=== PATIENT | male | born 1965 | race African-American/Black ===

== ENCOUNTER 2021-10-03 10:58 | Inpatient (IN) | payer OTHER ==
[2021-10-03] MEDS ORDERED: MAG HYDROX/AL HYDROX/SIMETH 30 ML UNIT-DOSE CUP PO PRN (11:26)
[2021-10-03] MEDS ORDERED: IBUPROFEN 400 MG TABLET (FP) PO PRN (11:26)
[2021-10-03] MEDS ORDERED: LOPERAMIDE HCL 2 MG CAPSULE PO PRN (11:26)
[2021-10-03] MEDS ORDERED: ONDANSETRON *ODT* 4 MG TABLET SL PRN (11:26)
[2021-10-03] MEDS ORDERED: MAGNESIUM HYDROX 2400MG/30ML ORAL SUSPENSION 30 ML CUP PO PRN (11:26)
[2021-10-03] MEDS ORDERED: MAGNESIUM CITRATE 300 ML BOTTLE PO PRN (11:26)
[2021-10-03] MEDS ORDERED: BENZOCAINE/MENTHOL (CHLORASEPTIC ) LOZENGE MM PRN (11:26)
[2021-10-03] MEDS ORDERED: ACETAMINOPHEN 325 MG TABLET (FP) PO PRN ×2 (11:26)
[2021-10-03] MEDS ORDERED: chlordiazePOXIDE HCL 25 MG CAPSULE PO PRN (11:26)
[2021-10-03] MEDS ORDERED: DICYCLOMINE HCL 10 MG CAPSULE PO PRN (11:26)
[2021-10-03] MEDS ORDERED: BISMUTH SUBSALICYLATE 262 MG/15 ML BTL PO PRN (11:26)
[2021-10-03] MEDS ORDERED: NICOTINE 10 MG CARTRIDGE (INHALER) IH PRN (11:26)
[2021-10-03 12:11] VITALS: BMI 25.2
[2021-10-03] MEDS: hydrOXYzine PAMOATE 25 MG CAPSULE (FP) PO SCH ×3 (14:33→23:18)
[2021-10-03] MEDS: METHOCARBAMOL 500 MG TABLET PO PRN (14:33)
[2021-10-03] MEDS: NICOTINE 21 MG/24 HOURS TOPICAL PATCH TD SCH (14:34)
[2021-10-03] MEDS: PRENATAL VITAMINS W/ FOLIC ACID TABLET (FP) PO SCH (14:34)
[2021-10-03 14:59] LABS: HEMATOCRIT 40.2 % (35.4-49); HEMOGLOBIN 13.1 GM/dL (11.7-16.9); MCH 32.1 pg (25.7-33.7); MCHC 32.5 g/dl (32.0-35.9); MEAN CELL VOLUME 98.9 fl (80-96); MEAN PLT VOLUME 8.5 fl (7.5-11.1); PLATELET COUNT 306 10^3/uL (134-434); RBC 4.07 M/mm3 (4.00-5.60); RDW 13.3 % (11.9-15.9); WHITE BLOOD COUNT 4.4 K/mm3 (4.0-10.0)
[2021-10-03 15:24] LABS: ALBUMIN 3.9 g/dl (3.4-5.0)
[2021-10-03 15:25] LABS: CALCIUM 9.1 mg/dL (8.5-10.1)
[2021-10-03 15:26] LABS: BLOOD UREA NITROGEN 20.2 mg/dL (7-18)
[2021-10-03 15:27] LABS: CREATININE 1.2 mg/dL (0.55-1.3)
[2021-10-03 15:29] LABS: BILIRUBIN,TOTAL 0.8 mg/dL (0.2-1); TOT PROT 6.9 g/dl (6.4-8.2)
[2021-10-03] MEDS: chlordiazePOXIDE HCL 25 MG CAPSULE PO SCH ×2 (20:06→23:18)
[2021-10-03] MEDS: THIAMINE HCL 100 MG TABLET (FP) PO SCH (23:18)
[2021-10-03] MEDS: MELATONIN 5 MG TABLETS PO SCH (23:18)
[2021-10-04] MEDS: hydrOXYzine PAMOATE 25 MG CAPSULE (FP) PO SCH ×5 (05:26→23:30)
[2021-10-04] MEDS: chlordiazePOXIDE HCL 25 MG CAPSULE PO SCH ×2 (05:27→05:38)
[2021-10-04] MEDS ORDERED: LORazepam 1 MG TABLET PO PRN (10:06)
[2021-10-04] MEDS: LORazepam 2 MG TABLET PO SCH ×3 (11:18→23:31)
[2021-10-04] MEDS: NICOTINE 21 MG/24 HOURS TOPICAL PATCH TD SCH (11:18)
[2021-10-04] MEDS: PRENATAL VITAMINS W/ FOLIC ACID TABLET (FP) PO SCH (11:18)
[2021-10-04] MEDS: FLUOCINONIDE 0.05% TOP OINT (15 GM TUBE) TP PRN (11:28)
[2021-10-04] MEDS: MELATONIN 5 MG TABLETS PO SCH (23:30)
[2021-10-04] MEDS: THIAMINE HCL 100 MG TABLET (FP) PO SCH (23:31)
[2021-10-05] MEDS ORDERED: chlordiazePOXIDE HCL 25 MG CAPSULE PO SCH (05:00)
[2021-10-05] MEDS: LORazepam 2 MG TABLET PO SCH ×3 (06:10→18:17)
[2021-10-05] MEDS: hydrOXYzine PAMOATE 25 MG CAPSULE (FP) PO SCH ×5 (06:11→23:28)
[2021-10-05] MEDS: PRENATAL VITAMINS W/ FOLIC ACID TABLET (FP) PO SCH (11:13)
[2021-10-05] MEDS: NICOTINE 21 MG/24 HOURS TOPICAL PATCH TD SCH (11:13)
[2021-10-05] MEDS: MELATONIN 5 MG TABLETS PO SCH (23:27)
[2021-10-05] MEDS: THIAMINE HCL 100 MG TABLET (FP) PO SCH (23:28)
[2021-10-06] MEDS ORDERED: chlordiazePOXIDE HCL 10 MG CAPSULE PO PRN
[2021-10-06] MEDS: LORazepam 2 MG TABLET PO SCH (00:46)
[2021-10-06] MEDS ORDERED: chlordiazePOXIDE HCL 10 MG CAPSULE PO SCH (05:00)
[2021-10-06] MEDS: LORazepam 1 MG TABLET PO SCH ×4 (05:22→22:59)
[2021-10-06] MEDS: hydrOXYzine PAMOATE 25 MG CAPSULE (FP) PO SCH ×5 (05:22→22:59)
[2021-10-06] MEDS: PRENATAL VITAMINS W/ FOLIC ACID TABLET (FP) PO SCH (10:42)
[2021-10-06] MEDS: NICOTINE 21 MG/24 HOURS TOPICAL PATCH TD SCH (10:42)
[2021-10-06] MEDS: METHOCARBAMOL 500 MG TABLET PO PRN (10:42)
[2021-10-06] MEDS: MELATONIN 5 MG TABLETS PO SCH (22:59)
[2021-10-06] MEDS: THIAMINE HCL 100 MG TABLET (FP) PO SCH (22:59)
[2021-10-07] MEDS ORDERED: LORazepam 0.5 MG TABLET PO PRN
[2021-10-07] MEDS ORDERED: chlordiazePOXIDE HCL 10 MG CAPSULE PO SCH (05:00)
[2021-10-07] MEDS: hydrOXYzine PAMOATE 25 MG CAPSULE (FP) PO SCH ×5 (05:55→22:40)
[2021-10-07] MEDS: LORazepam 0.5 MG TABLET PO SCH ×4 (05:55→22:49)
[2021-10-07] MEDS: NICOTINE 21 MG/24 HOURS TOPICAL PATCH TD SCH (09:57)
[2021-10-07] MEDS: PRENATAL VITAMINS W/ FOLIC ACID TABLET (FP) PO SCH (09:57)
[2021-10-07] MEDS: METHOCARBAMOL 500 MG TABLET PO PRN (09:58)
[2021-10-07] MEDS: FLUOCINONIDE 0.05% TOP OINT (15 GM TUBE) TP PRN (18:14)
[2021-10-07] MEDS: THIAMINE HCL 100 MG TABLET (FP) PO SCH (22:40)
[2021-10-07] MEDS: MELATONIN 5 MG TABLETS PO SCH (22:40)
[2021-10-08] MEDS ORDERED: chlordiazePOXIDE HCL 10 MG CAPSULE PO ONE (05:00)
[2021-10-08] MEDS ORDERED: LORazepam 0.5 MG TABLET PO ONE (05:00)
[2021-10-08] MEDS: hydrOXYzine PAMOATE 25 MG CAPSULE (FP) PO SCH ×2 (05:54→10:11)
[2021-10-08 09:31] VITALS: BP 129/63; PULSE 85; TEMP 96.9
[2021-10-08] MEDS: PRENATAL VITAMINS W/ FOLIC ACID TABLET (FP) PO SCH (10:11)
[2021-10-08] MEDS: NICOTINE 21 MG/24 HOURS TOPICAL PATCH TD SCH (10:11)
== END 2021-10-08 09:31 | disposition other institution (70) | DRG 774 ==
LOC: YASAS 10:58 → Y6N 14:11
PROVIDERS: ADMIT Allergy & Immunology; ATTEND Surgery
PROC: HZ2ZZZZ Detoxification Services for Substance Abuse Treatment (ICD-10-PCS; principal; 2021-10-03)
DX: F10.230 Alcohol dependence with withdrawal, uncomplicated (principal); F14.20 Cocaine dependence, uncomplicated; F17.213 Nicotine dependence, cigarettes, with withdrawal; L30.9 Dermatitis, unspecified; Z86.19 Personal history of other infectious and parasitic diseases; Z59.01 Sheltered homelessness; Z91.012 Allergy to eggs; Z91.018 Allergy to other foods
CPT/HCPCS: 36415; 80053; 85027; 86593; 86780; 93005; 93010; C9803-CS; U0003; U0005

== ENCOUNTER 2022-06-28 11:06 | Inpatient (IN) | payer OTHER ==
[2022-06-28 11:34] VITALS: BMI 26.2
[2022-06-28] MEDS ORDERED: ACETAMINOPHEN 325 MG TABLET (FP) PO PRN ×2 (12:41)
[2022-06-28] MEDS ORDERED: BENZOCAINE/MENTHOL (CHLORASEPTIC ) LOZENGE MM PRN (12:41)
[2022-06-28] MEDS ORDERED: IBUPROFEN 400 MG TABLET (FP) PO PRN (12:41)
[2022-06-28] MEDS ORDERED: NICOTINE 10 MG CARTRIDGE (INHALER) IH PRN (12:41)
[2022-06-28] MEDS ORDERED: hydrOXYzine PAMOATE 25 MG CAPSULE (FP) PO PRN (12:41)
[2022-06-28] MEDS ORDERED: METHOCARBAMOL 500 MG TABLET PO PRN (12:41)
[2022-06-28] MEDS ORDERED: NICOTINE POLACRILEX 4 MG GUM BUC PRN (12:41)
[2022-06-28] MEDS ORDERED: MAGNESIUM HYDROX 2400MG/30ML ORAL SUSPENSION 30 ML CUP PO PRN (12:41)
[2022-06-28] MEDS ORDERED: chlordiazePOXIDE HCL 25 MG CAPSULE PO PRN (12:41)
[2022-06-28] MEDS ORDERED: LOPERAMIDE HCL 2 MG CAPSULE PO PRN (12:41)
[2022-06-28] MEDS ORDERED: NALOXONE HCL (KLOXXADO) 8 MG SPRAY NS PRN (12:41)
[2022-06-28] MEDS ORDERED: DICYCLOMINE HCL 10 MG CAPSULE PO PRN (12:41)
[2022-06-28] MEDS ORDERED: POLYETHYLENE GLYCOL (HEALTHYLAX) 3350 17 GM PACKET PO PRN (12:41)
[2022-06-28] MEDS ORDERED: MAG HYDROX/AL HYDROX/SIMETH 30 ML UNIT-DOSE CUP PO PRN (12:41)
[2022-06-28] MEDS ORDERED: ONDANSETRON *ODT* 4 MG TABLET SL PRN (12:41)
[2022-06-28] MEDS ORDERED: IBUPROFEN 600 MG TABLET (FP) PO PRN (12:41)
[2022-06-28] MEDS ORDERED: BISMUTH SUBSALICYLATE 262 MG/15 ML BTL PO PRN (12:41)
[2022-06-28] MEDS ORDERED: PRENATAL VITAMINS W/ FOLIC ACID TABLET (FP) PO ONE (13:36)
[2022-06-28] MEDS: PRENATAL VITAMINS W/ FOLIC ACID TABLET (FP) PO SCH (13:38)
[2022-06-28] MEDS: chlordiazePOXIDE HCL 25 MG CAPSULE PO SCH ×2 (17:29→22:46)
[2022-06-28 17:32] LABS: HEMATOCRIT 38.5 % (35.4-49); MCH 33.5 pg (25.7-33.7); MCHC 33.8 g/dl (32.0-35.9); MEAN CELL VOLUME 99.2 fl (80-96); MEAN PLT VOLUME 8.5 fl (7.5-11.1); PLATELET COUNT 273 10^3/uL (134-434); RBC 3.88 M/mm3 (4.00-5.60); RDW 13.3 % (11.9-15.9)
[2022-06-28 17:37] LABS: CALCIUM 9.3 mg/dL (8.5-10.1)
[2022-06-28 17:38] LABS: ALBUMIN 3.9 g/dl (3.4-5.0)
[2022-06-28 17:42] LABS: CREATININE 1.2 mg/dL (0.55-1.3)
[2022-06-28 17:44] LABS: TOT PROT 6.9 g/dl (6.4-8.2)
[2022-06-28] MEDS: THIAMINE HCL 100 MG TABLET (FP) PO SCH (22:46)
[2022-06-28] MEDS: MELATONIN 5 MG TABLETS PO SCH (22:46)
[2022-06-29] MEDS: chlordiazePOXIDE HCL 25 MG CAPSULE PO SCH ×5 (06:00→22:39)
[2022-06-29] MEDS: PRENATAL VITAMINS W/ FOLIC ACID TABLET (FP) PO SCH (10:20)
[2022-06-29 21:32] VITALS: RESP 16
[2022-06-29] MEDS: MELATONIN 5 MG TABLETS PO SCH (22:38)
[2022-06-29] MEDS: THIAMINE HCL 100 MG TABLET (FP) PO SCH (23:52)
[2022-06-30] MEDS ORDERED: chlordiazePOXIDE HCL 25 MG CAPSULE PO SCH (05:00)
[2022-06-30 07:05] VITALS: BP 118/71; PULSE 67; TEMP 96.8
[2022-07-01] MEDS ORDERED: chlordiazePOXIDE HCL 10 MG CAPSULE PO PRN
[2022-07-01] MEDS ORDERED: chlordiazePOXIDE HCL 10 MG CAPSULE PO SCH (05:00)
[2022-07-02] MEDS ORDERED: chlordiazePOXIDE HCL 10 MG CAPSULE PO SCH (05:00)
[2022-07-03] MEDS ORDERED: chlordiazePOXIDE HCL 10 MG CAPSULE PO ONE (05:00)
== END 2022-06-30 09:10 | disposition home or self-care (01) | DRG 774 ==
LOC: YASAS 11:06 → Y3N 14:05
PROVIDERS: ADMIT Allergy & Immunology; ATTEND Family Medicine
PROC: HZ2ZZZZ Detoxification Services for Substance Abuse Treatment (ICD-10-PCS; principal; 2022-06-28)
DX: F10.230 Alcohol dependence with withdrawal, uncomplicated (principal); F14.20 Cocaine dependence, uncomplicated; F17.210 Nicotine dependence, cigarettes, uncomplicated; J45.909 Unspecified asthma, uncomplicated; L30.9 Dermatitis, unspecified; Z86.19 Personal history of other infectious and parasitic diseases; Z91.012 Allergy to eggs; Z91.018 Allergy to other foods
CPT/HCPCS: 36415; 80053; 85027; 86593; 86780; C9803-CS; U0003; U0005

== ENCOUNTER 2022-08-24 11:23 | Inpatient (IN) | payer OTHER ==
[2022-08-24 13:15] VITALS: BMI 25.6
[2022-08-24] MEDS ORDERED: guaiFENesin 600 MG TABLET.ER (FP) PO PRN (13:30)
[2022-08-24] MEDS ORDERED: NALOXONE HCL (KLOXXADO) 8 MG SPRAY NS PRN (13:30)
[2022-08-24] MEDS ORDERED: ONDANSETRON *ODT* 4 MG TABLET SL PRN (13:30)
[2022-08-24] MEDS ORDERED: METHOCARBAMOL 500 MG TABLET PO PRN (13:30)
[2022-08-24] MEDS ORDERED: COLLOIDAL OATMEAL 1 BAR EACH TP PRN (13:30)
[2022-08-24] MEDS ORDERED: BENZONATATE 200 MG CAPSULE PO PRN (13:30)
[2022-08-24] MEDS ORDERED: ACETAMINOPHEN 325 MG TABLET (FP) PO PRN (13:30)
[2022-08-24] MEDS ORDERED: BENZOCAINE/MENTHOL (CHLORASEPTIC ) LOZENGE MM PRN (13:30)
[2022-08-24] MEDS ORDERED: MAGNESIUM HYDROX 2400MG/30ML ORAL SUSPENSION 30 ML CUP PO PRN (13:30)
[2022-08-24] MEDS ORDERED: BISMUTH SUBSALICYLATE 524 MG/30 ML PO PRN (13:30)
[2022-08-24] MEDS ORDERED: NALOXONE HCL 0.4 MG/ML VIAL IM PRN (13:30)
[2022-08-24] MEDS ORDERED: LORazepam 1 MG TABLET PO PRN (13:30)
[2022-08-24] MEDS ORDERED: POLYETHYLENE GLYCOL (HEALTHYLAX) 3350 17 GM PACKET PO PRN (13:30)
[2022-08-24] MEDS ORDERED: DICYCLOMINE HCL 10 MG CAPSULE PO PRN (13:30)
[2022-08-24] MEDS ORDERED: NICOTINE 10 MG CARTRIDGE (INHALER) IH PRN (13:30)
[2022-08-24] MEDS ORDERED: NICOTINE POLACRILEX 4 MG GUM BUC PRN (13:30)
[2022-08-24] MEDS ORDERED: LOPERAMIDE HCL 2 MG CAPSULE PO PRN (13:30)
[2022-08-24] MEDS ORDERED: IBUPROFEN 400 MG TABLET (FP) PO PRN (13:30)
[2022-08-24] MEDS ORDERED: ALBUTEROL SO4 HFA INHALER IH PRN (13:34)
[2022-08-24] MEDS: FLUOCINONIDE 0.05% TOP OINT (60 GM TUBE) TP SCH ×2 (14:41→22:40)
[2022-08-24] MEDS: LORazepam 2 MG TABLET PO SCH ×2 (18:41→22:39)
[2022-08-24] MEDS: THIAMINE HCL 100 MG TABLET (FP) PO SCH (22:39)
[2022-08-24] MEDS: MELATONIN 5 MG TABLETS PO SCH (22:40)
[2022-08-25] MEDS: LORazepam 2 MG TABLET PO SCH ×2 (05:50→11:05)
[2022-08-25] MEDS: FLUOCINONIDE 0.05% TOP OINT (60 GM TUBE) TP SCH ×3 (06:07→22:40)
[2022-08-25] MEDS: PRENATAL VITAMINS W/ FOLIC ACID TABLET (FP) PO SCH (11:05)
[2022-08-25 11:48] LABS: HEMATOCRIT 37.1 % (35.4-49); HEMOGLOBIN 12.6 GM/dL (11.7-16.9); MCH 32.6 pg (25.7-33.7); MCHC 33.9 g/dl (32.0-35.9); MEAN CELL VOLUME 96.2 fl (80-96); MEAN PLT VOLUME 8.4 fl (7.5-11.1); PLATELET COUNT 265 10^3/uL (134-434); RBC 3.86 M/mm3 (4.00-5.60); WHITE BLOOD COUNT 8.7 K/mm3 (4.0-10.0)
[2022-08-25 11:51] LABS: ALBUMIN 3.3 g/dl (3.4-5.0); BLOOD UREA NITROGEN 16.9 mg/dL (7-18)
[2022-08-25 11:52] LABS: CALCIUM 8.6 mg/dL (8.5-10.1)
[2022-08-25 11:55] LABS: CREATININE 0.8 mg/dL (0.55-1.3)
[2022-08-25 11:56] LABS: BILIRUBIN,TOTAL 0.7 mg/dL (0.2-1)
[2022-08-25] MEDS: LORazepam 1 MG TABLET PO SCH ×2 (17:41→22:40)
[2022-08-25] MEDS: MELATONIN 5 MG TABLETS PO SCH (22:40)
[2022-08-25] MEDS: THIAMINE HCL 100 MG TABLET (FP) PO SCH (22:40)
[2022-08-26] MEDS: LORazepam 1 MG TABLET PO SCH ×4 (05:23→22:41)
[2022-08-26] MEDS: FLUOCINONIDE 0.05% TOP OINT (60 GM TUBE) TP SCH ×3 (05:24→22:43)
[2022-08-26] MEDS: PRENATAL VITAMINS W/ FOLIC ACID TABLET (FP) PO SCH (10:52)
[2022-08-26] MEDS: MAG HYDROX/AL HYDROX/SIMETH 30 ML UNIT-DOSE CUP PO PRN (21:23)
[2022-08-26] MEDS: THIAMINE HCL 100 MG TABLET (FP) PO SCH (22:41)
[2022-08-26] MEDS: MELATONIN 5 MG TABLETS PO SCH (22:43)
[2022-08-27] MEDS ORDERED: LORazepam 0.5 MG TABLET PO PRN
[2022-08-27] MEDS: FLUOCINONIDE 0.05% TOP OINT (60 GM TUBE) TP SCH ×3 (05:45→23:10)
[2022-08-27] MEDS: LORazepam 0.5 MG TABLET PO SCH ×4 (05:45→23:00)
[2022-08-27] MEDS: PRENATAL VITAMINS W/ FOLIC ACID TABLET (FP) PO SCH (10:34)
[2022-08-27] MEDS: MAG HYDROX/AL HYDROX/SIMETH 30 ML UNIT-DOSE CUP PO PRN (18:30)
[2022-08-27] MEDS: MELATONIN 5 MG TABLETS PO SCH (23:10)
[2022-08-27] MEDS: THIAMINE HCL 100 MG TABLET (FP) PO SCH (23:11)
[2022-08-28] MEDS ORDERED: LORazepam 0.5 MG TABLET PO ONE (05:00)
[2022-08-28] MEDS: FLUOCINONIDE 0.05% TOP OINT (60 GM TUBE) TP SCH (05:32)
[2022-08-28 05:50] VITALS: RESP 18
[2022-08-28 09:06] VITALS: BP 137/72; PULSE 76; TEMP 97.3
[2022-08-28] MEDS: PRENATAL VITAMINS W/ FOLIC ACID TABLET (FP) PO SCH (09:12)
== END 2022-08-28 09:25 | disposition home or self-care (01) | DRG 774 ==
LOC: YASAS 11:23 → Y6N 13:59
PROVIDERS: ADMIT Allergy & Immunology; ATTEND Surgery
PROC: HZ2ZZZZ Detoxification Services for Substance Abuse Treatment (ICD-10-PCS; principal; 2022-08-24)
DX: F10.230 Alcohol dependence with withdrawal, uncomplicated (principal); F14.20 Cocaine dependence, uncomplicated; F17.210 Nicotine dependence, cigarettes, uncomplicated; J45.909 Unspecified asthma, uncomplicated; L30.9 Dermatitis, unspecified; Z86.19 Personal history of other infectious and parasitic diseases
CPT/HCPCS: 36415; 80053; 85027; 86593; 86780; C9803-CS; U0003; U0005

== ENCOUNTER 2022-12-31 15:37 | Inpatient (IN) | payer OTHER ==
[2022-12-31 17:17] VITALS: BMI 26.0
[2022-12-31] MEDS ORDERED: ACETAMINOPHEN 325 MG TABLET (FP) PO PRN (20:46)
[2022-12-31] MEDS ORDERED: BENZONATATE 200 MG CAPSULE PO PRN (20:46)
[2022-12-31] MEDS ORDERED: ONDANSETRON *ODT* 4 MG TABLET SL PRN (20:46)
[2022-12-31] MEDS ORDERED: BISMUTH SUBSALICYLATE 524 MG/30 ML PO PRN (20:46)
[2022-12-31] MEDS ORDERED: IBUPROFEN 600 MG TABLET (FP) PO PRN (20:46)
[2022-12-31] MEDS ORDERED: METHOCARBAMOL 500 MG TABLET PO PRN (20:46)
[2022-12-31] MEDS ORDERED: MAGNESIUM HYDROX 2400MG/30ML ORAL SUSPENSION 30 ML CUP PO PRN (20:46)
[2022-12-31] MEDS ORDERED: IBUPROFEN 400 MG TABLET (FP) PO PRN (20:46)
[2022-12-31] MEDS ORDERED: NALOXONE HCL 0.4 MG/ML VIAL IM PRN (20:46)
[2022-12-31] MEDS ORDERED: BENZOCAINE/MENTHOL (CHLORASEPTIC ) LOZENGE MM PRN (20:46)
[2022-12-31] MEDS ORDERED: guaiFENesin 600 MG TABLET.ER (FP) PO PRN (20:46)
[2022-12-31] MEDS ORDERED: POLYETHYLENE GLYCOL (HEALTHYLAX) 3350 17 GM PACKET PO PRN (20:46)
[2022-12-31] MEDS ORDERED: NALOXONE HCL (KLOXXADO) 8 MG SPRAY NS PRN (20:46)
[2022-12-31] MEDS ORDERED: LOPERAMIDE HCL 2 MG CAPSULE PO PRN (20:46)
[2022-12-31] MEDS ORDERED: NICOTINE POLACRILEX 2 MG GUM BUC PRN (20:46)
[2022-12-31] MEDS ORDERED: DICYCLOMINE HCL 10 MG CAPSULE PO PRN (20:46)
[2022-12-31] MEDS ORDERED: chlordiazePOXIDE HCL 25 MG CAPSULE PO PRN (21:04)
[2023-01-01] MEDS: THIAMINE HCL 100 MG TABLET (FP) PO SCH ×2 (01:04→22:41)
[2023-01-01] MEDS: chlordiazePOXIDE HCL 25 MG CAPSULE PO SCH ×3 (01:04→10:15)
[2023-01-01] MEDS: MELATONIN 5 MG TABLETS PO SCH ×2 (01:04→22:41)
[2023-01-01] MEDS: PRENATAL VITAMINS W/ FOLIC ACID TABLET (FP) PO SCH (10:16)
[2023-01-01] MEDS: NICOTINE 14 MG/24 HOURS TOPICAL PATCH TD SCH (10:16)
[2023-01-01 11:36] LABS: HEMATOCRIT 40.6 % (35.4-49); HEMOGLOBIN 12.9 GM/dL (11.7-16.9); MCH 32.6 pg (25.7-33.7); MCHC 31.8 g/dl (32.0-35.9); MEAN CELL VOLUME 102.5 fl (80-96); MEAN PLT VOLUME 9.5 fl (7.5-11.1); PLATELET COUNT 319 10^3/uL (134-434); RBC 3.96 M/mm3 (4.00-5.60); RDW 13.6 % (11.9-15.9); WHITE BLOOD COUNT 4.3 K/mm3 (4.0-10.0)
[2023-01-01] MEDS ORDERED: diazePAM 5 MG TABLET PO PRN (12:45)
[2023-01-01 14:05] LABS: POTASSIUM 3.9 mmol/L (3.5-5.1)
[2023-01-01 14:16] LABS: ALBUMIN 3.4 g/dl (3.4-5.0)
[2023-01-01 14:17] LABS: BLOOD UREA NITROGEN 15.8 mg/dL (7-18); CALCIUM 9.4 mg/dL (8.5-10.1)
[2023-01-01 14:22] LABS: BILIRUBIN,TOTAL 0.4 mg/dL (0.2-1); TOT PROT 6.3 g/dl (6.4-8.2)
[2023-01-01 14:30] LABS: HIV INTERPRETATION NEGATIVE (NEGATIVE)
[2023-01-01] MEDS: diazePAM 5 MG TABLET PO SCH ×2 (17:12→22:40)
[2023-01-02] MEDS ORDERED: chlordiazePOXIDE HCL 25 MG CAPSULE PO SCH (05:00)
[2023-01-02] MEDS: diazePAM 5 MG TABLET PO SCH ×4 (05:40→22:37)
[2023-01-02] MEDS: NICOTINE 14 MG/24 HOURS TOPICAL PATCH TD SCH (10:13)
[2023-01-02] MEDS: PRENATAL VITAMINS W/ FOLIC ACID TABLET (FP) PO SCH (10:13)
[2023-01-02] MEDS: MAG HYDROX/AL HYDROX/SIMETH 30 ML UNIT-DOSE CUP PO PRN (14:57)
[2023-01-02] MEDS: MELATONIN 5 MG TABLETS PO SCH (22:31)
[2023-01-02] MEDS: THIAMINE HCL 100 MG TABLET (FP) PO SCH (22:32)
[2023-01-03] MEDS ORDERED: chlordiazePOXIDE HCL 10 MG CAPSULE PO PRN
[2023-01-03] MEDS ORDERED: chlordiazePOXIDE HCL 10 MG CAPSULE PO SCH (05:00)
[2023-01-03] MEDS: diazePAM 5 MG TABLET PO SCH ×3 (06:20→22:10)
[2023-01-03] MEDS: PRENATAL VITAMINS W/ FOLIC ACID TABLET (FP) PO SCH (10:13)
[2023-01-03] MEDS: NICOTINE 14 MG/24 HOURS TOPICAL PATCH TD SCH (10:13)
[2023-01-03] MEDS: MAG HYDROX/AL HYDROX/SIMETH 30 ML UNIT-DOSE CUP PO PRN ×2 (10:13→20:27)
[2023-01-03] MEDS: THIAMINE HCL 100 MG TABLET (FP) PO SCH (22:09)
[2023-01-03] MEDS: MELATONIN 5 MG TABLETS PO SCH (22:09)
[2023-01-04] MEDS ORDERED: chlordiazePOXIDE HCL 10 MG CAPSULE PO SCH (05:00)
[2023-01-04] MEDS: NICOTINE 14 MG/24 HOURS TOPICAL PATCH TD SCH (10:05)
[2023-01-04] MEDS: diazePAM 5 MG TABLET PO SCH ×2 (10:06→21:05)
[2023-01-04] MEDS: PRENATAL VITAMINS W/ FOLIC ACID TABLET (FP) PO SCH (10:06)
[2023-01-04] MEDS: MELATONIN 5 MG TABLETS PO SCH (21:04)
[2023-01-04] MEDS: THIAMINE HCL 100 MG TABLET (FP) PO SCH (21:04)
[2023-01-05] MEDS ORDERED: chlordiazePOXIDE HCL 10 MG CAPSULE PO ONE (05:00)
[2023-01-05] MEDS ORDERED: diazePAM 5 MG TABLET PO ONE (06:00)
[2023-01-05] MEDS ORDERED: METHOCARBAMOL 500 MG TABLET PO PRN (10:18)
[2023-01-05] MEDS ORDERED: hydrOXYzine PAMOATE 25 MG CAPSULE (FP) PO PRN (10:20)
[2023-01-05] MEDS: NICOTINE 14 MG/24 HOURS TOPICAL PATCH TD SCH (10:47)
[2023-01-05] MEDS: PRENATAL VITAMINS W/ FOLIC ACID TABLET (FP) PO SCH (10:47)
[2023-01-05 12:48] VITALS: RESP 18
[2023-01-05] MEDS: THIAMINE HCL 100 MG TABLET (FP) PO SCH (21:02)
[2023-01-05] MEDS: MELATONIN 5 MG TABLETS PO SCH (21:02)
[2023-01-06 09:10] VITALS: BP 107/63; PULSE 69; TEMP 98.2
== END 2023-01-06 09:10 | disposition home or self-care (01) | DRG 774 ==
LOC: YASAS 15:37 → Y3N 21:11
PROVIDERS: ADMIT Allergy & Immunology; ATTEND Allergy & Immunology
PROC: HZ2ZZZZ Detoxification Services for Substance Abuse Treatment (ICD-10-PCS; principal; 2022-12-31)
DX: F10.230 Alcohol dependence with withdrawal, uncomplicated (principal); F14.20 Cocaine dependence, uncomplicated; F17.210 Nicotine dependence, cigarettes, uncomplicated; J45.20 Mild intermittent asthma, uncomplicated; L30.9 Dermatitis, unspecified; Z59.00 Homelessness unspecified
CPT/HCPCS: 36415; 80053; 85027; 86593; 86780; 87389; 87635; 87811; 93005; 93010

== ENCOUNTER 2023-03-16 15:02 | Inpatient (IN) | payer OTHER ==
[2023-03-16 15:35] VITALS: BMI 27.1
[2023-03-16] MEDS ORDERED: IBUPROFEN 400 MG TABLET (FP) PO PRN (17:54)
[2023-03-16] MEDS ORDERED: MAG HYDROX/AL HYDROX/SIMETH 30 ML UNIT-DOSE CUP PO PRN (17:54)
[2023-03-16] MEDS ORDERED: ACETAMINOPHEN 325 MG TABLET (FP) PO PRN (17:54)
[2023-03-16] MEDS ORDERED: ONDANSETRON *ODT* 4 MG TABLET SL PRN (17:54)
[2023-03-16] MEDS ORDERED: BENZONATATE 200 MG CAPSULE PO PRN (17:54)
[2023-03-16] MEDS ORDERED: BISMUTH SUBSALICYLATE 524 MG/30 ML PO PRN (17:54)
[2023-03-16] MEDS ORDERED: hydrOXYzine PAMOATE 25 MG CAPSULE (FP) PO PRN (17:54)
[2023-03-16] MEDS ORDERED: DICYCLOMINE HCL 10 MG CAPSULE PO PRN (17:54)
[2023-03-16] MEDS ORDERED: chlordiazePOXIDE HCL 25 MG CAPSULE PO PRN (17:54)
[2023-03-16] MEDS ORDERED: MAGNESIUM HYDROX 2400MG/30ML ORAL SUSPENSION 30 ML CUP PO PRN (17:54)
[2023-03-16] MEDS ORDERED: BENZOCAINE/MENTHOL (CHLORASEPTIC ) LOZENGE MM PRN (17:54)
[2023-03-16] MEDS ORDERED: LOPERAMIDE HCL 2 MG CAPSULE PO PRN (17:54)
[2023-03-16] MEDS ORDERED: NALOXONE HCL (KLOXXADO) 8 MG SPRAY NS PRN (17:54)
[2023-03-16] MEDS ORDERED: guaiFENesin 600 MG TABLET.ER (FP) PO PRN (17:54)
[2023-03-16] MEDS ORDERED: NALOXONE HCL 0.4 MG/ML VIAL IM PRN (17:54)
[2023-03-16] MEDS ORDERED: POLYETHYLENE GLYCOL (HEALTHYLAX) 3350 17 GM PACKET PO PRN (17:54)
[2023-03-16] MEDS ORDERED: IBUPROFEN 600 MG TABLET (FP) PO PRN (17:54)
[2023-03-16] MEDS: chlordiazePOXIDE HCL 25 MG CAPSULE PO SCH (23:11)
[2023-03-16] MEDS: THIAMINE HCL 100 MG TABLET (FP) PO SCH (23:11)
[2023-03-16] MEDS: MELATONIN 5 MG TABLETS PO SCH (23:11)
[2023-03-17] MEDS: chlordiazePOXIDE HCL 25 MG CAPSULE PO SCH ×4 (05:46→23:04)
[2023-03-17] MEDS: METHOCARBAMOL 500 MG TABLET PO PRN (05:49)
[2023-03-17] MEDS: PRENATAL VITAMINS W/ FOLIC ACID TABLET (FP) PO SCH (10:47)
[2023-03-17 11:37] LABS: HEMATOCRIT 40.3 % (35.4-49); HEMOGLOBIN 13.4 GM/dL (11.7-16.9); MCH 33.1 pg (25.7-33.7); MCHC 33.3 g/dl (32.0-35.9); MEAN CELL VOLUME 99.4 fl (80-96); PLATELET COUNT 278 10^3/uL (134-434); RBC 4.05 M/mm3 (4.00-5.60); RDW 12.5 % (11.9-15.9)
[2023-03-17 11:38] LABS: CHLORIDE 110 mmol/L (98-107); POTASSIUM 4.2 mmol/L (3.5-5.1); SODIUM 142 mmol/L (136-145)
[2023-03-17 11:45] LABS: BLOOD UREA NITROGEN 13.4 mg/dL (7-18); GLUCOSE,RANDOM 82 mg/dL (74-106); SGOT/AST 13 U/L (15-37)
[2023-03-17 11:47] LABS: ANION GAP 3 mmol/L (4-13); BILIRUBIN,TOTAL 0.3 mg/dL (0.2-1); CALCIUM 8.4 mg/dL (8.5-10.1); CO2 30 mmol/L (21-32); TOT PROT 6.2 g/dl (6.4-8.2)
[2023-03-17 11:48] LABS: ALK PHOS 84 U/L (45-117)
[2023-03-17 11:50] LABS: ALBUMIN 3.3 g/dl (3.4-5.0)
[2023-03-17 12:05] LABS: SGPT/ALT 20 U/L (13-61)
[2023-03-17] MEDS: THIAMINE HCL 100 MG TABLET (FP) PO SCH (23:05)
[2023-03-17] MEDS: MELATONIN 5 MG TABLETS PO SCH (23:05)
[2023-03-18] MEDS: chlordiazePOXIDE HCL 25 MG CAPSULE PO SCH ×5 (05:49→22:54)
[2023-03-18] MEDS: PRENATAL VITAMINS W/ FOLIC ACID TABLET (FP) PO SCH (10:14)
[2023-03-18] MEDS: METHOCARBAMOL 500 MG TABLET PO PRN (19:15)
[2023-03-18 20:57] VITALS: PULSE 82
[2023-03-18] MEDS: THIAMINE HCL 100 MG TABLET (FP) PO SCH (22:40)
[2023-03-18] MEDS: MELATONIN 5 MG TABLETS PO SCH (22:40)
[2023-03-19] MEDS ORDERED: chlordiazePOXIDE HCL 10 MG CAPSULE PO PRN
[2023-03-19] MEDS: chlordiazePOXIDE HCL 10 MG CAPSULE PO SCH ×3 (05:47→10:41)
[2023-03-19 06:17] VITALS: BP 142/77; RESP 18; TEMP 97.8
[2023-03-19] MEDS ORDERED: ALBUTEROL SO4 HFA INHALER IH PRN (09:15)
[2023-03-19] MEDS: PRENATAL VITAMINS W/ FOLIC ACID TABLET (FP) PO SCH (09:53)
[2023-03-20] MEDS ORDERED: chlordiazePOXIDE HCL 10 MG CAPSULE PO SCH (05:00)
[2023-03-21] MEDS ORDERED: chlordiazePOXIDE HCL 10 MG CAPSULE PO ONE (05:00)
== END 2023-03-19 09:20 | disposition home or self-care (01) | DRG 774 ==
LOC: SUATTDRO 15:02 → YASAS 15:02 → Y6N 18:01
PROVIDERS: ADMIT Allergy & Immunology; ATTEND Surgery
PROC: HZ2ZZZZ Detoxification Services for Substance Abuse Treatment (ICD-10-PCS; principal; 2023-03-16)
DX: F10.230 Alcohol dependence with withdrawal, uncomplicated (principal); F14.20 Cocaine dependence, uncomplicated; F17.210 Nicotine dependence, cigarettes, uncomplicated; J45.20 Mild intermittent asthma, uncomplicated; R76.8 Other specified abnormal immunological findings in serum; Z86.19 Personal history of other infectious and parasitic diseases
CPT/HCPCS: 36415; 80053; 80307; 85027; 86593; 86780; 87635

== ENCOUNTER 2023-09-05 16:47 | Inpatient (IN) | payer OTHER ==
[2023-09-05 17:30] VITALS: BMI 26.8
[2023-09-05] MEDS ORDERED: ALBUTEROL SO4 HFA INHALER IH PRN (18:26)
[2023-09-05] MEDS ORDERED: MAGNESIUM HYDROX 2400MG/30ML ORAL SUSPENSION 30 ML CUP PO PRN (18:27)
[2023-09-05] MEDS ORDERED: LOPERAMIDE HCL 2 MG CAPSULE PO PRN (18:27)
[2023-09-05] MEDS ORDERED: guaiFENesin 600 MG TABLET.ER (FP) PO PRN (18:27)
[2023-09-05] MEDS ORDERED: POLYETHYLENE GLYCOL (HEALTHYLAX) 3350 17 GM PACKET PO PRN (18:27)
[2023-09-05] MEDS ORDERED: BENZONATATE 200 MG CAPSULE PO PRN (18:27)
[2023-09-05] MEDS ORDERED: BENZOCAINE/MENTHOL (CHLORASEPTIC ) LOZENGE MM PRN (18:27)
[2023-09-05] MEDS ORDERED: ACETAMINOPHEN 325 MG TABLET (FP) PO PRN (18:27)
[2023-09-05] MEDS ORDERED: IBUPROFEN 400 MG TABLET (FP) PO PRN (18:27)
[2023-09-05] MEDS ORDERED: NICOTINE POLACRILEX 2 MG GUM BUC PRN (18:27)
[2023-09-05] MEDS: THIAMINE HCL 100 MG TABLET (FP) PO SCH (21:52)
[2023-09-05] MEDS: MELATONIN 5 MG TABLETS PO SCH (21:52)
[2023-09-06] MEDS: PRENATAL VITAMINS W/ FOLIC ACID TABLET (FP) PO SCH (10:18)
[2023-09-06 14:11] LABS: HEMATOCRIT 38.1 % (35.4-49); HEMOGLOBIN 12.8 GM/dL (11.7-16.9); MCH 33.2 pg (25.7-33.7); MCHC 33.6 g/dl (32.0-35.9); MEAN CELL VOLUME 98.8 fl (80-96); MEAN PLT VOLUME 9.1 fl (7.5-11.1); PLATELET COUNT 274 10^3/uL (134-434); RBC 3.85 M/mm3 (4.00-5.60); RDW 13.8 % (11.9-15.9); WHITE BLOOD COUNT 6.5 K/mm3 (4.0-10.0)
[2023-09-06 14:16] LABS: CHLORIDE 110 mmol/L (98-107); POTASSIUM 3.9 mmol/L (3.5-5.1); SODIUM 143 mmol/L (136-145)
[2023-09-06 14:21] LABS: ALBUMIN 3.3 g/dl (3.4-5.0); ANION GAP 7 mmol/L (4-13); BLOOD UREA NITROGEN 17.9 mg/dL (7-18); CALCIUM 8.7 mg/dL (8.5-10.1); CO2 25 mmol/L (21-32)
[2023-09-06 14:22] LABS: GLUCOSE,RANDOM 118 mg/dL (74-106)
[2023-09-06 14:24] LABS: SGOT/AST 17 U/L (15-37); SGPT/ALT 23 U/L (13-61)
[2023-09-06 14:26] LABS: BILIRUBIN,TOTAL 0.7 mg/dL (0.2-1); TOT PROT 6.2 g/dl (6.4-8.2)
[2023-09-06 14:27] LABS: ALK PHOS 83 U/L (45-117)
[2023-09-06] MEDS: MAG HYDROX/AL HYDROX/SIMETH 30 ML UNIT-DOSE CUP PO PRN (19:00)
[2023-09-08 08:20] VITALS: BP 124/81; PULSE 66; RESP 18; TEMP 97.1
[2023-09-08] MEDS: IBUPROFEN 600 MG TABLET (FP) PO PRN (09:50)
== END 2023-09-09 10:00 | disposition home or self-care (01) | DRG 772 ==
LOC: YASAS 16:47 → Y3W 18:39
PROVIDERS: ADMIT Allergy & Immunology; ATTEND Psychiatry & Neurology Pain Medicine
PROC: HZ42ZZZ Group Counseling for Substance Abuse Treatment, Cognitive-Behavioral (ICD-10-PCS; principal; 2023-09-05)
DX: F10.20 Alcohol dependence, uncomplicated (principal); F14.20 Cocaine dependence, uncomplicated; F17.210 Nicotine dependence, cigarettes, uncomplicated; J45.20 Mild intermittent asthma, uncomplicated; L30.9 Dermatitis, unspecified; R76.8 Other specified abnormal immunological findings in serum; Z86.19 Personal history of other infectious and parasitic diseases; Z59.02 Unsheltered homelessness
CPT/HCPCS: 36415; 80053; 80307; 85027; 86593; 86780

== ENCOUNTER 2023-10-02 18:11 | Inpatient (IN) | payer OTHER ==
[2023-10-02 19:12] VITALS: BMI 24.3
[2023-10-02] MEDS ORDERED: NALOXONE HCL 0.4 MG/ML VIAL IM PRN (20:22)
[2023-10-02] MEDS ORDERED: BENZONATATE 200 MG CAPSULE PO PRN (20:22)
[2023-10-02] MEDS ORDERED: ONDANSETRON *ODT* 4 MG TABLET SL PRN (20:22)
[2023-10-02] MEDS ORDERED: POLYETHYLENE GLYCOL (HEALTHYLAX) 3350 17 GM PACKET PO PRN (20:22)
[2023-10-02] MEDS ORDERED: NALOXONE HCL (KLOXXADO) 8 MG SPRAY NS PRN (20:22)
[2023-10-02] MEDS ORDERED: DICYCLOMINE HCL 10 MG CAPSULE PO PRN (20:22)
[2023-10-02] MEDS ORDERED: LOPERAMIDE HCL 2 MG CAPSULE PO PRN (20:22)
[2023-10-02] MEDS ORDERED: ACETAMINOPHEN 325 MG TABLET (FP) PO PRN (20:22)
[2023-10-02] MEDS ORDERED: guaiFENesin 600 MG TABLET.ER (FP) PO PRN (20:22)
[2023-10-02] MEDS ORDERED: NICOTINE POLACRILEX 2 MG GUM BUC PRN (20:22)
[2023-10-02] MEDS ORDERED: MAG HYDROX/AL HYDROX/SIMETH 30 ML UNIT-DOSE CUP PO PRN (20:22)
[2023-10-02] MEDS ORDERED: hydrOXYzine PAMOATE 25 MG CAPSULE (FP) PO PRN (20:22)
[2023-10-02] MEDS ORDERED: IBUPROFEN 400 MG TABLET (FP) PO PRN (20:22)
[2023-10-02] MEDS ORDERED: BENZOCAINE/MENTHOL (CHLORASEPTIC ) LOZENGE MM PRN (20:22)
[2023-10-02] MEDS ORDERED: ALBUTEROL SO4 HFA INHALER IH PRN (20:24)
[2023-10-02] MEDS: MELATONIN 5 MG TABLETS PO SCH (22:22)
[2023-10-02] MEDS: THIAMINE 100 MG TABLET PO SCH (22:23)
[2023-10-03] MEDS ORDERED: diazePAM 5 MG TABLET PO PRN (10:03)
[2023-10-03] MEDS: NICOTINE 21 MG/24 HOURS TOPICAL PATCH TD SCH (10:21)
[2023-10-03] MEDS: PRENATAL VITAMINS W/ FOLIC ACID TABLET (FP) PO SCH (10:21)
[2023-10-03] MEDS: IBUPROFEN 600 MG TABLET (FP) PO PRN (10:22)
[2023-10-03] MEDS: METHOCARBAMOL 500 MG TABLET PO PRN (10:22)
[2023-10-03] MEDS: diazePAM 5 MG TABLET PO SCH (10:22)
[2023-10-03] MEDS: MAGNESIUM HYDROX 2400MG/30ML ORAL SUSPENSION 30 ML CUP PO PRN (21:50)
[2023-10-05] MEDS: diazePAM 5 MG TABLET PO SCH (06:34)
[2023-10-06] MEDS: diazePAM 5 MG TABLET PO SCH (05:30)
[2023-10-06 13:46] VITALS: RESP 18
[2023-10-06] MEDS: BISMUTH SUBSALICYLATE 524 MG/30 ML PO PRN (19:14)
[2023-10-07 06:43] VITALS: BP 140/81; PULSE 63; TEMP 97.8
[2023-10-07] MEDS: diazePAM 5 MG TABLET PO ONE (06:51)
== END 2023-10-07 08:48 | disposition home or self-care (01) | DRG 774 ==
LOC: YASAS 18:11 → Y3N 20:26
PROVIDERS: ADMIT Allergy & Immunology; ATTEND Surgery
PROC: HZ2ZZZZ Detoxification Services for Substance Abuse Treatment (ICD-10-PCS; principal; 2023-10-02)
DX: F10.230 Alcohol dependence with withdrawal, uncomplicated (principal); F14.20 Cocaine dependence, uncomplicated; F17.210 Nicotine dependence, cigarettes, uncomplicated; J45.909 Unspecified asthma, uncomplicated; L30.9 Dermatitis, unspecified; Z86.19 Personal history of other infectious and parasitic diseases; Z56.0 Unemployment, unspecified; Z59.00 Homelessness unspecified
CPT/HCPCS: 80305; 93005; 93010

== ENCOUNTER 2023-11-03 13:13 | Inpatient (IN) | payer OTHER ==
[2023-11-03 14:34] VITALS: BMI 24.9
[2023-11-03] MEDS ORDERED: METHOCARBAMOL 500 MG TABLET PO PRN (14:53)
[2023-11-03] MEDS ORDERED: DICYCLOMINE HCL 10 MG CAPSULE PO PRN (14:53)
[2023-11-03] MEDS ORDERED: IBUPROFEN 400 MG TABLET (FP) PO PRN (14:53)
[2023-11-03] MEDS ORDERED: IBUPROFEN 600 MG TABLET (FP) PO PRN (14:53)
[2023-11-03] MEDS ORDERED: NALOXONE (NARCAN) HCL 4 MG/0.1 ML SPRAY NS PRN (14:53)
[2023-11-03] MEDS ORDERED: ONDANSETRON *ODT* 4 MG TABLET SL PRN (14:53)
[2023-11-03] MEDS ORDERED: hydrOXYzine PAMOATE 25 MG CAPSULE (FP) PO PRN (14:53)
[2023-11-03] MEDS ORDERED: BISMUTH SUBSALICYLATE 524 MG/30 ML PO PRN (14:53)
[2023-11-03] MEDS ORDERED: ACETAMINOPHEN 325 MG TABLET (FP) PO PRN (14:53)
[2023-11-03] MEDS ORDERED: BENZOCAINE/MENTHOL (CHLORASEPTIC ) LOZENGE MM PRN (14:53)
[2023-11-03] MEDS ORDERED: NALOXONE HCL 0.4 MG/ML VIAL IM PRN (14:53)
[2023-11-03] MEDS ORDERED: POLYETHYLENE GLYCOL (HEALTHYLAX) 3350 17 GM PACKET PO PRN (14:53)
[2023-11-03] MEDS ORDERED: MAGNESIUM HYDROX 2400MG/30ML ORAL SUSPENSION 30 ML CUP PO PRN (14:53)
[2023-11-03] MEDS ORDERED: guaiFENesin 600 MG TABLET.ER (FP) PO PRN (14:53)
[2023-11-03] MEDS ORDERED: LOPERAMIDE HCL 2 MG CAPSULE PO PRN (14:53)
[2023-11-03] MEDS ORDERED: BENZONATATE 200 MG CAPSULE PO PRN (14:53)
[2023-11-03] MEDS ORDERED: ALBUTEROL SO4 HFA INHALER IH PRN (14:55)
[2023-11-03] MEDS: diazePAM 5 MG TABLET PO SCH (17:29)
[2023-11-03] MEDS: PRENATAL VITAMINS W/ FOLIC ACID TABLET (FP) PO SCH (17:34)
[2023-11-03] MEDS: BACITRACIN 0.9 GM PACKET TP ONE (18:37)
[2023-11-03] MEDS: VITAMINS A AND D TOPICAL OINTMENT TP SCH (22:15)
[2023-11-03] MEDS: THIAMINE 100 MG TABLET PO SCH (22:16)
[2023-11-03] MEDS: MELATONIN 5 MG TABLETS PO SCH (22:16)
[2023-11-04] MEDS: NICOTINE 21 MG/24 HOURS TOPICAL PATCH TD SCH (10:08)
[2023-11-04 12:20] LABS: HEMOGLOBIN 12.4 GM/dL (11.7-16.9); MCH 33.3 pg (25.7-33.7); MCHC 33.6 g/dl (32.0-35.9); MEAN CELL VOLUME 99.1 fl (80-96); MEAN PLT VOLUME 9.1 fl (7.5-11.1); PLATELET COUNT 266 10^3/uL (134-434); RBC 3.73 M/mm3 (4.00-5.60); RDW 13.1 % (11.9-15.9); WHITE BLOOD COUNT 4.9 K/mm3 (4.0-10.0)
[2023-11-04 12:28] LABS: CHLORIDE 110 mmol/L (98-107); POTASSIUM 3.9 mmol/L (3.5-5.1); SODIUM 143 mmol/L (136-145)
[2023-11-04 12:38] LABS: ALBUMIN 3.2 g/dl (3.4-5.0); ANION GAP 3 mmol/L (4-13); BLOOD UREA NITROGEN 17.4 mg/dL (7-18); CALCIUM 8.9 mg/dL (8.5-10.1); CO2 30 mmol/L (21-32); GLUCOSE,RANDOM 108 mg/dL (74-106)
[2023-11-04 12:41] LABS: CREATININE 0.9 mg/dL (0.55-1.3); SGOT/AST 16 U/L (15-37); SGPT/ALT 27 U/L (13-61)
[2023-11-04 12:43] LABS: ALK PHOS 84 U/L (45-117); BILIRUBIN,TOTAL 0.7 mg/dL (0.2-1); TOT PROT 5.8 g/dl (6.4-8.2)
[2023-11-04] MEDS: LACTULOSE 20 GM/30 ML UDC (FOR ORAL USE ONLY) PO SCH (22:50)
[2023-11-05] MEDS: diazePAM 5 MG TABLET PO SCH (05:24)
[2023-11-05] MEDS: diazePAM 5 MG TABLET PO PRN (10:13)
[2023-11-06] MEDS: diazePAM 5 MG TABLET PO SCH (06:42)
[2023-11-06 12:58] VITALS: RESP 18
[2023-11-06] MEDS: MAG HYDROX/AL HYDROX/SIMETH 30 ML UNIT-DOSE CUP PO PRN (14:17)
[2023-11-06] MEDS: cloNIDine HCL 0.1 MG TABLET PO ONE (21:54)
[2023-11-07] MEDS: diazePAM 5 MG TABLET PO ONE (06:27)
[2023-11-07 08:54] VITALS: BP 124/73; PULSE 64; TEMP 98.1
== END 2023-11-07 09:37 | disposition home or self-care (01) | DRG 774 ==
LOC: YASAS 13:13 → Y3N 15:48
PROVIDERS: ADMIT Allergy & Immunology; ATTEND Surgery
PROC: HZ2ZZZZ Detoxification Services for Substance Abuse Treatment (ICD-10-PCS; principal; 2023-11-03)
DX: F10.230 Alcohol dependence with withdrawal, uncomplicated (principal); F14.20 Cocaine dependence, uncomplicated; F17.210 Nicotine dependence, cigarettes, uncomplicated; J45.20 Mild intermittent asthma, uncomplicated; L30.9 Dermatitis, unspecified; R79.89 Other specified abnormal findings of blood chemistry; R76.8 Other specified abnormal immunological findings in serum; Z86.19 Personal history of other infectious and parasitic diseases; Z56.0 Unemployment, unspecified; Z59.00 Homelessness unspecified
CPT/HCPCS: 36415; 80053; 80305; 80307; 82140; 85027; 86593; 86780; 93005; 93010

== ENCOUNTER 2024-01-16 12:44 | Inpatient (IN) | payer OTHER ==
[2024-01-16 13:38] VITALS: BMI 24.8
[2024-01-16] MEDS ORDERED: METHOCARBAMOL 500 MG TABLET PO PRN (14:25)
[2024-01-16] MEDS ORDERED: diazePAM 5 MG TABLET PO PRN (14:25)
[2024-01-16] MEDS ORDERED: MAGNESIUM HYDROX 2400MG/30ML ORAL SUSPENSION 30 ML CUP PO PRN (14:25)
[2024-01-16] MEDS ORDERED: ONDANSETRON *ODT* 4 MG TABLET SL PRN (14:25)
[2024-01-16] MEDS ORDERED: LOPERAMIDE HCL 2 MG CAPSULE PO PRN (14:25)
[2024-01-16] MEDS ORDERED: IBUPROFEN 400 MG TABLET (FP) PO PRN (14:25)
[2024-01-16] MEDS ORDERED: BENZONATATE 200 MG CAPSULE PO PRN (14:25)
[2024-01-16] MEDS ORDERED: NALOXONE (NARCAN) HCL 4 MG/0.1 ML SPRAY NS PRN (14:25)
[2024-01-16] MEDS ORDERED: DICYCLOMINE HCL 10 MG CAPSULE PO PRN (14:25)
[2024-01-16] MEDS ORDERED: NALOXONE HCL 0.4 MG/ML VIAL IM PRN (14:25)
[2024-01-16] MEDS ORDERED: hydrOXYzine PAMOATE 25 MG CAPSULE (FP) PO PRN (14:25)
[2024-01-16] MEDS ORDERED: guaiFENesin 600 MG TABLET.ER (FP) PO PRN (14:25)
[2024-01-16] MEDS ORDERED: IBUPROFEN 600 MG TABLET (FP) PO PRN (14:25)
[2024-01-16] MEDS ORDERED: BISMUTH SUBSALICYLATE 262 MG/15 ML BTL PO PRN (14:25)
[2024-01-16] MEDS ORDERED: BENZOCAINE/MENTHOL (CHLORASEPTIC ) LOZENGE MM PRN (14:25)
[2024-01-16] MEDS ORDERED: POLYETHYLENE GLYCOL (HEALTHYLAX) 3350 17 GM PACKET PO PRN (14:25)
[2024-01-16] MEDS: NICOTINE 14 MG/24 HOURS TOPICAL PATCH TD SCH (16:07)
[2024-01-16] MEDS: PRENATAL VITAMINS W/ FOLIC ACID TABLET (FP) PO SCH (16:07)
[2024-01-16] MEDS: diazePAM 5 MG TABLET PO SCH (17:55)
[2024-01-16] MEDS: ACETAMINOPHEN 325 MG TABLET (FP) PO PRN (17:57)
[2024-01-16] MEDS: THIAMINE 100 MG TABLET PO SCH (22:35)
[2024-01-16] MEDS: MELATONIN 5 MG TABLETS PO SCH (22:36)
[2024-01-17 11:11] LABS: HEMATOCRIT 37.6 % (35.4-49); HEMOGLOBIN 12.4 GM/dL (11.7-16.9); MCH 33.1 pg (25.7-33.7); MCHC 33.1 g/dl (32.0-35.9); MEAN CELL VOLUME 100.1 fl (80-96); MEAN PLT VOLUME 8.9 fl (7.5-11.1); PLATELET COUNT 295 10^3/uL (134-434); RBC 3.75 M/mm3 (4.00-5.60); RDW 12.9 % (11.9-15.9); WHITE BLOOD COUNT 4.7 K/mm3 (4.0-10.0)
[2024-01-18] MEDS: diazePAM 5 MG TABLET PO SCH (06:09)
[2024-01-18] MEDS: MAG HYDROX/AL HYDROX/SIMETH 30 ML UNIT-DOSE CUP PO PRN (10:30)
[2024-01-19] MEDS: diazePAM 5 MG TABLET PO SCH (06:28)
[2024-01-19 06:30] VITALS: BP 135/66; PULSE 54; RESP 16; TEMP 97.1
[2024-01-20] MEDS ORDERED: diazePAM 5 MG TABLET PO ONE (06:00)
== END 2024-01-19 09:02 | disposition left against medical advice (07) | DRG 770 ==
LOC: YASAS 12:44 → Y6N 16:03
PROVIDERS: ADMIT Allergy & Immunology; ATTEND Surgery
PROC: HZ2ZZZZ Detoxification Services for Substance Abuse Treatment (ICD-10-PCS; principal; 2024-01-16)
DX: F10.230 Alcohol dependence with withdrawal, uncomplicated (principal); F14.20 Cocaine dependence, uncomplicated; F17.210 Nicotine dependence, cigarettes, uncomplicated; J45.909 Unspecified asthma, uncomplicated; L30.9 Dermatitis, unspecified; R76.8 Other specified abnormal immunological findings in serum; Z59.01 Sheltered homelessness
CPT/HCPCS: 36415; 80305; 80307; 85027; 86593; 86780; 93005; 93010

== ENCOUNTER 2024-05-07 11:39 | Inpatient (IN) | payer OTHER ==
[2024-05-07 12:14] VITALS: BMI 20.3
[2024-05-07] MEDS ORDERED: ONDANSETRON *ODT* 4 MG TABLET SL PRN (12:26)
[2024-05-07] MEDS ORDERED: LOPERAMIDE HCL 2 MG CAPSULE PO PRN (12:26)
[2024-05-07] MEDS ORDERED: DICYCLOMINE HCL 10 MG CAPSULE PO PRN (12:26)
[2024-05-07] MEDS ORDERED: POLYETHYLENE GLYCOL (HEALTHYLAX) 3350 17 GM PACKET PO PRN (12:26)
[2024-05-07] MEDS ORDERED: chlordiazePOXIDE HCL 25 MG CAPSULE PO PRN (12:26)
[2024-05-07] MEDS ORDERED: hydrOXYzine PAMOATE 25 MG CAPSULE (FP) PO PRN (12:26)
[2024-05-07] MEDS ORDERED: guaiFENesin 600 MG TABLET.ER (FP) PO PRN (12:26)
[2024-05-07] MEDS ORDERED: MAGNESIUM HYDROX 2400MG/30ML ORAL SUSPENSION 30 ML CUP PO PRN (12:26)
[2024-05-07] MEDS ORDERED: NALOXONE (NARCAN) HCL 4 MG/0.1 ML SPRAY NS PRN (12:26)
[2024-05-07] MEDS ORDERED: IBUPROFEN 400 MG TABLET (FP) PO PRN (12:26)
[2024-05-07] MEDS ORDERED: BENZONATATE 200 MG CAPSULE PO PRN (12:26)
[2024-05-07] MEDS ORDERED: ALBUTEROL SO4 HFA INHALER IH PRN (12:30)
[2024-05-07] MEDS: PRENATAL VITAMINS W/ FOLIC ACID TABLET (FP) PO SCH (13:58)
[2024-05-07] MEDS: IBUPROFEN 600 MG TABLET (FP) PO PRN (17:58)
[2024-05-07] MEDS: METHOCARBAMOL 500 MG TABLET PO PRN (17:59)
[2024-05-07] MEDS: chlordiazePOXIDE HCL 25 MG CAPSULE PO SCH (17:59)
[2024-05-07] MEDS: SULFAMETHOXAZOLE/TRIMETHOPRIM 800MG/160MG D.S. TABLET PO SCH (20:06)
[2024-05-07] MEDS: MELATONIN 5 MG TABLETS PO SCH (23:54)
[2024-05-07] MEDS: THIAMINE 100 MG TABLET PO SCH (23:55)
[2024-05-08] MEDS: ALBUTEROL SO4 HFA INHALER IH PRN (07:50)
[2024-05-08] MEDS: ACETAMINOPHEN 325 MG TABLET (FP) PO PRN (11:46)
[2024-05-08] MEDS: MAG HYDROX/AL HYDROX/SIMETH 30 ML UNIT-DOSE CUP PO PRN (17:09)
[2024-05-09] MEDS: chlordiazePOXIDE HCL 25 MG CAPSULE PO SCH (06:04)
[2024-05-09] MEDS ORDERED: cloNIDine HCL 0.1 MG TABLET PO PRN (14:34)
[2024-05-09] MEDS: BENZOCAINE/MENTHOL (CHLORASEPTIC ) LOZENGE MM PRN (17:49)
[2024-05-10] MEDS ORDERED: chlordiazePOXIDE HCL 10 MG CAPSULE PO PRN
[2024-05-10] MEDS: chlordiazePOXIDE HCL 10 MG CAPSULE PO SCH (06:00)
[2024-05-11] MEDS: chlordiazePOXIDE HCL 10 MG CAPSULE PO SCH (06:07)
[2024-05-11] MEDS: BISMUTH SUBSALICYLATE 524 MG/30 ML PO PRN (18:37)
[2024-05-12] MEDS: chlordiazePOXIDE HCL 10 MG CAPSULE PO ONE (06:00)
[2024-05-12] MEDS: NALOXONE (NYS OPIOID OVERDOSE PROGRAM) 4 MG/0.1 ML SPRAY NS SCH (08:38)
[2024-05-12 09:44] VITALS: BP 110/74; PULSE 91; RESP 18; TEMP 97.5
== END 2024-05-12 09:54 | disposition home or self-care (01) | DRG 774 ==
LOC: YASAS 11:39 → Y3N 13:19
PROVIDERS: ADMIT Allergy & Immunology; ATTEND Surgery
PROC: HZ2ZZZZ Detoxification Services for Substance Abuse Treatment (ICD-10-PCS; principal; 2024-05-07)
DX: F10.230 Alcohol dependence with withdrawal, uncomplicated (principal); F14.20 Cocaine dependence, uncomplicated; F17.210 Nicotine dependence, cigarettes, uncomplicated; J45.20 Mild intermittent asthma, uncomplicated; J20.9 Acute bronchitis, unspecified; L30.9 Dermatitis, unspecified; R03.0 Elevated blood-pressure reading, without diagnosis of hypertension; Z86.19 Personal history of other infectious and parasitic diseases; Z59.00 Homelessness unspecified; Z56.0 Unemployment, unspecified
CPT/HCPCS: 36415; 80307; 93005; 93010

== ENCOUNTER 2024-06-03 12:16 | Inpatient (IN) | payer OTHER ==
[2024-06-03] MEDS ORDERED: LOPERAMIDE HCL 2 MG CAPSULE PO PRN (13:00)
[2024-06-03] MEDS ORDERED: DICYCLOMINE HCL 10 MG CAPSULE PO PRN (13:00)
[2024-06-03] MEDS ORDERED: MAGNESIUM HYDROX 2400MG/30ML ORAL SUSPENSION 30 ML CUP PO PRN (13:00)
[2024-06-03] MEDS ORDERED: BENZOCAINE/MENTHOL (CHLORASEPTIC ) LOZENGE MM PRN (13:00)
[2024-06-03] MEDS ORDERED: IBUPROFEN 600 MG TABLET (FP) PO PRN (13:00)
[2024-06-03] MEDS ORDERED: IBUPROFEN 400 MG TABLET (FP) PO PRN (13:00)
[2024-06-03] MEDS ORDERED: ONDANSETRON *ODT* 4 MG TABLET SL PRN (13:00)
[2024-06-03] MEDS ORDERED: NALOXONE (NARCAN) HCL 4 MG/0.1 ML SPRAY NS PRN (13:00)
[2024-06-03] MEDS ORDERED: guaiFENesin 600 MG TABLET.ER (FP) PO PRN (13:00)
[2024-06-03] MEDS ORDERED: POLYETHYLENE GLYCOL (HEALTHYLAX) 3350 17 GM PACKET PO PRN (13:00)
[2024-06-03] MEDS ORDERED: hydrOXYzine PAMOATE 25 MG CAPSULE (FP) PO PRN (13:00)
[2024-06-03] MEDS ORDERED: BISMUTH SUBSALICYLATE 262 MG/15 ML BTL PO PRN (13:00)
[2024-06-03] MEDS ORDERED: BENZONATATE 200 MG CAPSULE PO PRN (13:00)
[2024-06-03] MEDS ORDERED: chlordiazePOXIDE HCL 25 MG CAPSULE PO PRN (13:00)
[2024-06-03 13:08] VITALS: BMI 22.9
[2024-06-03] MEDS ORDERED: PRENATAL VITAMINS W/ FOLIC ACID TABLET (FP) PO ONE (15:00)
[2024-06-03] MEDS: PRENATAL VITAMINS W/ FOLIC ACID TABLET (FP) PO SCH (15:01)
[2024-06-03] MEDS: chlordiazePOXIDE HCL 25 MG CAPSULE PO SCH (17:47)
[2024-06-03] MEDS: THIAMINE 100 MG TABLET PO SCH (22:11)
[2024-06-03] MEDS: MELATONIN 5 MG TABLETS PO SCH (22:11)
[2024-06-03] MEDS: METHOCARBAMOL 500 MG TABLET PO PRN (22:11)
[2024-06-04 14:35] LABS: HEMATOCRIT 38.2 % (35.4-49); HEMOGLOBIN 12.1 GM/dL (11.7-16.9); MCH 32.3 pg (25.7-33.7); MCHC 31.7 g/dl (32.0-35.9); MEAN CELL VOLUME 101.7 fl (80-96); MEAN PLT VOLUME 8.8 fl (7.5-11.1); PLATELET COUNT 266 10^3/uL (134-434); RBC 3.75 M/mm3 (4.00-5.60); RDW 13.8 % (11.9-15.9); WHITE BLOOD COUNT 4.9 K/mm3 (4.0-10.0)
[2024-06-04 14:40] LABS: CHLORIDE 109 mmol/L (98-107); POTASSIUM 3.8 mmol/L (3.5-5.1); SODIUM 142 mmol/L (136-145)
[2024-06-04 14:45] LABS: ALBUMIN 3.4 g/dl (3.4-5.0); ANION GAP 4 mmol/L (4-13); BLOOD UREA NITROGEN 15.2 mg/dL (7-18); CALCIUM 8.7 mg/dL (8.5-10.1); CO2 30 mmol/L (21-32)
[2024-06-04 14:46] LABS: GLUCOSE,RANDOM 91 mg/dL (74-106)
[2024-06-04 14:48] LABS: CREATININE 0.8 mg/dL (0.55-1.3); SGOT/AST 18 U/L (15-37); SGPT/ALT 30 U/L (13-61)
[2024-06-04 14:50] LABS: BILIRUBIN,TOTAL 0.5 mg/dL (0.2-1); TOT PROT 6.1 g/dl (6.4-8.2)
[2024-06-04 14:51] LABS: ALK PHOS 96 U/L (45-117)
[2024-06-05] MEDS: chlordiazePOXIDE HCL 25 MG CAPSULE PO SCH (05:51)
[2024-06-05] MEDS: ACETAMINOPHEN 325 MG TABLET (FP) PO PRN (10:31)
[2024-06-05] MEDS: MAG HYDROX/AL HYDROX/SIMETH 30 ML UNIT-DOSE CUP PO PRN (20:15)
[2024-06-06] MEDS ORDERED: chlordiazePOXIDE HCL 10 MG CAPSULE PO PRN
[2024-06-06] MEDS: chlordiazePOXIDE HCL 10 MG CAPSULE PO SCH (05:50)
[2024-06-06] MEDS ORDERED: ALBUTEROL SO4 HFA INHALER IH PRN (09:31)
[2024-06-07] MEDS: chlordiazePOXIDE HCL 10 MG CAPSULE PO SCH (06:09)
[2024-06-07 06:44] VITALS: TEMP 98.6
[2024-06-07 09:11] VITALS: BP 130/73; PULSE 85; RESP 18
[2024-06-07] MEDS: NALOXONE (NYS OPIOID OVERDOSE PROGRAM) 4 MG/0.1 ML SPRAY NS SCH (09:28)
[2024-06-08] MEDS ORDERED: chlordiazePOXIDE HCL 10 MG CAPSULE PO ONE (05:00)
== END 2024-06-07 11:40 | disposition other institution (70) | DRG 774 ==
LOC: YASAS 12:16 → Y6N 15:30
PROVIDERS: ADMIT Allergy & Immunology; ATTEND Allergy & Immunology
PROC: HZ2ZZZZ Detoxification Services for Substance Abuse Treatment (ICD-10-PCS; principal; 2024-06-03)
DX: F10.230 Alcohol dependence with withdrawal, uncomplicated (principal); F14.20 Cocaine dependence, uncomplicated; F17.210 Nicotine dependence, cigarettes, uncomplicated; J45.20 Mild intermittent asthma, uncomplicated; L30.9 Dermatitis, unspecified; J20.9 Acute bronchitis, unspecified; R76.8 Other specified abnormal immunological findings in serum; Z86.19 Personal history of other infectious and parasitic diseases; Z56.0 Unemployment, unspecified; Z59.00 Homelessness unspecified
CPT/HCPCS: 36415; 80053; 80305; 80307; 85027; 86593; 86780; 93005; 93010

== ENCOUNTER 2024-07-08 11:34 | Inpatient (IN) | payer OTHER ==
[2024-07-08 11:52] VITALS: BMI 24.4
[2024-07-08] MEDS ORDERED: ONDANSETRON *ODT* 4 MG TABLET SL PRN (13:02)
[2024-07-08] MEDS ORDERED: BISMUTH SUBSALICYLATE 262 MG/15 ML BTL PO PRN (13:02)
[2024-07-08] MEDS ORDERED: IBUPROFEN 400 MG TABLET (FP) PO PRN (13:02)
[2024-07-08] MEDS ORDERED: hydrOXYzine PAMOATE 25 MG CAPSULE (FP) PO PRN (13:02)
[2024-07-08] MEDS ORDERED: MAGNESIUM HYDROX 2400MG/30ML ORAL SUSPENSION 30 ML CUP PO PRN (13:02)
[2024-07-08] MEDS ORDERED: METHOCARBAMOL 500 MG TABLET PO PRN (13:02)
[2024-07-08] MEDS ORDERED: NALOXONE (NARCAN) HCL 4 MG/0.1 ML SPRAY NS PRN (13:02)
[2024-07-08] MEDS ORDERED: DICYCLOMINE HCL 10 MG CAPSULE PO PRN (13:02)
[2024-07-08] MEDS ORDERED: IBUPROFEN 600 MG TABLET (FP) PO PRN (13:02)
[2024-07-08] MEDS ORDERED: LOPERAMIDE HCL 2 MG CAPSULE PO PRN (13:02)
[2024-07-08] MEDS ORDERED: POLYETHYLENE GLYCOL (HEALTHYLAX) 3350 17 GM PACKET PO PRN (13:02)
[2024-07-08] MEDS ORDERED: ACETAMINOPHEN 325 MG TABLET (FP) PO PRN (13:02)
[2024-07-08] MEDS ORDERED: NICOTINE POLACRILEX 2 MG GUM BUC PRN (13:02)
[2024-07-08] MEDS ORDERED: guaiFENesin 600 MG TABLET.ER (FP) PO PRN (13:02)
[2024-07-08] MEDS ORDERED: BENZONATATE 200 MG CAPSULE PO PRN (13:02)
[2024-07-08] MEDS ORDERED: ALBUTEROL SO4 HFA INHALER IH PRN (13:50)
[2024-07-08] MEDS ORDERED: VITAMINS A AND D TOPICAL OINTMENT TP PRN (13:51)
[2024-07-08] MEDS ORDERED: GLY/DIMETH/PETROLAT,WHT/WATER (AVEENO) CREAM TP PRN (13:52)
[2024-07-08] MEDS: THIAMINE 100 MG TABLET PO SCH (23:24)
[2024-07-08] MEDS: MELATONIN 5 MG TABLETS PO SCH (23:24)
[2024-07-09] MEDS: NICOTINE 14 MG/24 HOURS TOPICAL PATCH TD SCH (10:10)
[2024-07-09] MEDS: PRENATAL VITAMINS W/ FOLIC ACID TABLET (FP) PO SCH (10:10)
[2024-07-09] MEDS ORDERED: diazePAM 5 MG TABLET PO PRN (10:14)
[2024-07-09] MEDS: diazePAM 5 MG TABLET PO SCH (11:07)
[2024-07-09 11:20] LABS: HEMATOCRIT 39.8 % (35.4-49); HEMOGLOBIN 12.8 GM/dL (11.7-16.9); MCH 32.4 pg (25.7-33.7); MCHC 32.2 g/dl (32.0-35.9); MEAN CELL VOLUME 100.5 fl (80-96); MEAN PLT VOLUME 8.5 fl (7.5-11.1); PLATELET COUNT 221 10^3/uL (134-434); RBC 3.96 M/mm3 (4.00-5.60); RDW 13.4 % (11.9-15.9); WHITE BLOOD COUNT 4.3 K/mm3 (4.0-10.0)
[2024-07-09 11:22] LABS: CHLORIDE 108 mmol/L (98-107); POTASSIUM 3.8 mmol/L (3.5-5.1); SODIUM 142 mmol/L (136-145)
[2024-07-09 11:29] LABS: ALBUMIN 3.4 g/dl (3.4-5.0); ANION GAP 5 mmol/L (4-13); BLOOD UREA NITROGEN 10.7 mg/dL (7-18); CALCIUM 8.4 mg/dL (8.5-10.1); CO2 29 mmol/L (21-32); GLUCOSE,RANDOM 100 mg/dL (74-106)
[2024-07-09 11:32] LABS: SGOT/AST 15 U/L (15-37); SGPT/ALT 23 U/L (13-61)
[2024-07-09 11:33] LABS: BILIRUBIN,TOTAL 0.7 mg/dL (0.2-1); CREATININE 0.9 mg/dL (0.55-1.3)
[2024-07-09 11:34] LABS: ALK PHOS 73 U/L (45-117); TOT PROT 6.1 g/dl (6.4-8.2)
[2024-07-09] MEDS: MAG HYDROX/AL HYDROX/SIMETH 30 ML UNIT-DOSE CUP PO PRN (17:32)
[2024-07-10] MEDS: BENZOCAINE/MENTHOL (CHLORASEPTIC ) LOZENGE MM PRN (18:58)
[2024-07-11] MEDS: diazePAM 5 MG TABLET PO SCH (05:58)
[2024-07-11] MEDS: HYDROCORTISONE 1% TOPICAL CREAM 30 GM TUBE TP PRN (18:11)
[2024-07-12] MEDS: diazePAM 5 MG TABLET PO SCH (05:41)
[2024-07-12 16:40] VITALS: RESP 16
[2024-07-12 20:46] VITALS: TEMP 97.8
[2024-07-13] MEDS: diazePAM 5 MG TABLET PO ONE (05:40)
[2024-07-13 09:03] VITALS: BP 134/84; PULSE 85
== END 2024-07-13 09:47 | disposition home or self-care (01) | DRG 774 ==
LOC: YASAS 11:34 → Y3N 13:50
PROVIDERS: ADMIT Allergy & Immunology; ATTEND Allergy & Immunology
PROC: HZ2ZZZZ Detoxification Services for Substance Abuse Treatment (ICD-10-PCS; principal; 2024-07-08)
DX: F10.230 Alcohol dependence with withdrawal, uncomplicated (principal); F14.20 Cocaine dependence, uncomplicated; F17.210 Nicotine dependence, cigarettes, uncomplicated; J45.20 Mild intermittent asthma, uncomplicated; L30.9 Dermatitis, unspecified
CPT/HCPCS: 36415; 80053; 80305; 80307; 82550; 84484; 85027; 86593; 86780; 93005; 93010

== ENCOUNTER 2024-09-24 22:31 | Inpatient (IN) | payer OTHER ==
[2024-09-24 23:02] VITALS: BMI 24.8
[2024-09-25] MEDS ORDERED: ONDANSETRON *ODT* 4 MG TABLET SL PRN (01:14)
[2024-09-25] MEDS ORDERED: hydrOXYzine PAMOATE 25 MG CAPSULE (FP) PO PRN (01:14)
[2024-09-25] MEDS ORDERED: DICYCLOMINE HCL 10 MG CAPSULE PO PRN (01:14)
[2024-09-25] MEDS ORDERED: BISMUTH SUBSALICYLATE 524 MG/30 ML PO PRN (01:14)
[2024-09-25] MEDS ORDERED: LOPERAMIDE HCL 2 MG CAPSULE PO PRN (01:14)
[2024-09-25] MEDS ORDERED: NALOXONE (NARCAN) HCL 4 MG/0.1 ML SPRAY NS PRN (01:14)
[2024-09-25] MEDS ORDERED: MAGNESIUM HYDROX 2400MG/30ML ORAL SUSPENSION 30 ML CUP PO PRN (01:14)
[2024-09-25] MEDS ORDERED: BENZOCAINE/MENTHOL (CHLORASEPTIC ) LOZENGE MM PRN (01:14)
[2024-09-25] MEDS ORDERED: POLYETHYLENE GLYCOL (HEALTHYLAX) 3350 17 GM PACKET PO PRN (01:14)
[2024-09-25] MEDS ORDERED: NICOTINE POLACRILEX 2 MG GUM BUC PRN (01:14)
[2024-09-25] MEDS ORDERED: BENZONATATE 200 MG CAPSULE PO PRN (01:14)
[2024-09-25] MEDS ORDERED: ACETAMINOPHEN 325 MG TABLET (FP) PO PRN (01:14)
[2024-09-25] MEDS ORDERED: guaiFENesin 600 MG TABLET.ER (FP) PO PRN (01:14)
[2024-09-25] MEDS ORDERED: MAG HYDROX/AL HYDROX/SIMETH 30 ML UNIT-DOSE CUP PO PRN (01:14)
[2024-09-25] MEDS ORDERED: IBUPROFEN 400 MG TABLET (FP) PO PRN (01:14)
[2024-09-25] MEDS ORDERED: LORazepam 1 MG TABLET PO PRN (09:02)
[2024-09-25] MEDS: IBUPROFEN 600 MG TABLET (FP) PO PRN (10:40)
[2024-09-25] MEDS: LORazepam 2 MG TABLET PO SCH (10:40)
[2024-09-25] MEDS: METHOCARBAMOL 500 MG TABLET PO PRN (10:40)
[2024-09-25] MEDS: PRENATAL VITAMINS W/ FOLIC ACID TABLET (FP) PO SCH (10:40)
[2024-09-25] MEDS: NICOTINE 14 MG/24 HOURS TOPICAL PATCH TD SCH (10:42)
[2024-09-25] MEDS: MELATONIN 5 MG TABLETS PO SCH (23:10)
[2024-09-25] MEDS: THIAMINE 100 MG TABLET PO SCH (23:10)
[2024-09-25] MEDS: CLOTRIMAZOLE 1% CREAM TP ONE (23:10)
[2024-09-25] MEDS: CLOTRIMAZOLE 1% CREAM TP SCH (23:12)
[2024-09-26 09:26] LABS: HEMATOCRIT 39.9 % (40.1-51.0); HEMOGLOBIN 12.7 g/dL (13.7-17.5); MCHC 31.8 g/dl (32.3-36.5); MEAN CELL VOLUME 100.3 fl (79.0-92.2); MEAN PLT VOLUME 10.6 fl (9.4-12.4); PLATELET COUNT 296 x10^3/uL (163-337); RDW 12.1 % (12.2-16.1)
[2024-09-26 09:27] LABS: POTASSIUM 3.9 mmol/L (3.5-5.1)
[2024-09-26 09:33] LABS: ALBUMIN 3.4 g/dl (3.4-5.0); BLOOD UREA NITROGEN 9.7 mg/dL (7-18); CALCIUM 9.3 mg/dL (8.5-10.1)
[2024-09-26 09:37] LABS: CREATININE 0.8 mg/dL (0.55-1.3)
[2024-09-26 09:38] LABS: BILIRUBIN,TOTAL 0.6 mg/dL (0.2-1); TOT PROT 6.1 g/dl (6.4-8.2)
[2024-09-27] MEDS: LORazepam 1 MG TABLET PO SCH (06:00)
[2024-09-27 12:54] VITALS: PULSE 69; RESP 18; TEMP 97.7
[2024-09-27] MEDS ORDERED: ALBUTEROL SO4 HFA INHALER IH PRN (13:15)
[2024-09-27 13:54] VITALS: BP 128/83
[2024-09-28] MEDS ORDERED: LORazepam 0.5 MG TABLET PO PRN
[2024-09-28] MEDS ORDERED: LORazepam 0.5 MG TABLET PO SCH (05:00)
[2024-09-29] MEDS ORDERED: LORazepam 0.5 MG TABLET PO ONE (05:00)
== END 2024-09-27 15:37 | disposition left against medical advice (07) | DRG 770 ==
LOC: YASAS 22:31 → Y6N 09-25 03:15
PROVIDERS: ADMIT Allergy & Immunology; ATTEND Family Medicine Addiction Medicine
PROC: HZ2ZZZZ Detoxification Services for Substance Abuse Treatment (ICD-10-PCS; principal; 2024-09-25)
DX: F10.230 Alcohol dependence with withdrawal, uncomplicated (principal); F14.20 Cocaine dependence, uncomplicated; F12.20 Cannabis dependence, uncomplicated; F17.210 Nicotine dependence, cigarettes, uncomplicated; F25.9 Schizoaffective disorder, unspecified; F31.9 Bipolar disorder, unspecified; J44.9 Chronic obstructive pulmonary disease, unspecified; L30.9 Dermatitis, unspecified; G40.909 Epilepsy, unspecified, not intractable, without status epilepticus; Z59.02 Unsheltered homelessness
CPT/HCPCS: 36415; 80053; 80305; 80307; 85027; 86593; 86780; 93005; 93010

== ENCOUNTER 2024-11-20 08:35 | Inpatient (IN) | payer OTHER ==
[2024-11-20 09:32] VITALS: BMI 23.8
[2024-11-20] MEDS ORDERED: LOPERAMIDE HCL 2 MG CAPSULE PO PRN (09:57)
[2024-11-20] MEDS ORDERED: BENZOCAINE/MENTHOL (CHLORASEPTIC ) LOZENGE MM PRN (09:57)
[2024-11-20] MEDS ORDERED: MAG HYDROX/AL HYDROX/SIMETH 30 ML UNIT-DOSE CUP PO PRN (09:57)
[2024-11-20] MEDS ORDERED: NICOTINE POLACRILEX 4 MG GUM BUC PRN (09:57)
[2024-11-20] MEDS ORDERED: NALOXONE (NARCAN) HCL 4 MG/0.1 ML SPRAY NS PRN (09:57)
[2024-11-20] MEDS ORDERED: DICYCLOMINE HCL 10 MG CAPSULE PO PRN (09:57)
[2024-11-20] MEDS ORDERED: BENZONATATE 200 MG CAPSULE PO PRN (09:57)
[2024-11-20] MEDS ORDERED: guaiFENesin 600 MG TABLET.ER (FP) PO PRN (09:57)
[2024-11-20] MEDS ORDERED: BISMUTH SUBSALICYLATE 524 MG/30 ML PO PRN (09:57)
[2024-11-20] MEDS ORDERED: ACETAMINOPHEN 325 MG TABLET (FP) PO PRN (09:57)
[2024-11-20] MEDS ORDERED: POLYETHYLENE GLYCOL (HEALTHYLAX) 3350 17 GM PACKET PO PRN (09:57)
[2024-11-20] MEDS ORDERED: MAGNESIUM HYDROX 2400MG/30ML ORAL SUSPENSION 30 ML CUP PO PRN (09:57)
[2024-11-20] MEDS ORDERED: ONDANSETRON *ODT* 4 MG TABLET SL PRN (09:57)
[2024-11-20] MEDS ORDERED: IBUPROFEN 400 MG TABLET (FP) PO PRN (09:57)
[2024-11-20] MEDS ORDERED: ALBUTEROL SO4 HFA INHALER IH PRN (10:05)
[2024-11-20] MEDS ORDERED: PRENATAL VITAMINS W/ FOLIC ACID TABLET (FP) PO ONE (10:51)
[2024-11-20] MEDS: PRENATAL VITAMINS W/ FOLIC ACID TABLET (FP) PO SCH (10:52)
[2024-11-20] MEDS: MELATONIN 5 MG TABLETS PO SCH (23:10)
[2024-11-20] MEDS: THIAMINE 100 MG TABLET PO SCH (23:11)
[2024-11-21] MEDS: IBUPROFEN 600 MG TABLET (FP) PO PRN (17:10)
[2024-11-22 11:27] LABS: ABSOLUTE IMMATURE GRANULOCYTES 0.02 x10^3/uL (0.0-0.031); BASOPHILS # 0.03 x10^3/uL (0.01-0.08); EOSINOPHIL % 7.2 % (0.8-7.0); EOSINOPHILS # 0.32 x10^3/uL (0.04-0.54); MCHC 32.9 g/dl (32.3-36.5); MEAN CELL VOLUME 100.0 fl (79.0-92.2); MEAN PLT VOLUME 11.1 fl (9.4-12.4); MONOCYTE # 0.43 x10^3/uL (0.30-0.82); MONOCYTE % 9.6 % (5.3-12.2); RDW 11.4 % (12.2-16.1)
[2024-11-22 17:11] LABS: CO2 28.0 mmol/L (21-32); GLUCOSE,RANDOM 88.0 mg/dL (74-106)
[2024-11-22 17:14] LABS: CREATININE 0.7 mg/dL (0.55-1.3); SGOT/AST 14.0 U/L (15-37); SGPT/ALT 21.0 U/L (13-61)
[2024-11-22 17:15] LABS: TOT PROT 5.5 g/dl (6.4-8.2)
[2024-11-22 17:16] LABS: ALK PHOS 69.0 U/L (45-117)
[2024-11-23] MEDS: METHOCARBAMOL 500 MG TABLET PO PRN (05:50)
[2024-11-23] MEDS ORDERED: NICOTINE POLACRILEX 2 MG LOZENGE BC PRN (06:06)
[2024-11-24 06:00] VITALS: BP 109/66; PULSE 90; RESP 16; TEMP 95.5
== END 2024-11-24 08:45 | disposition home or self-care (01) | DRG 774 ==
LOC: YASAS 08:35 → Y6N 10:34
PROVIDERS: ADMIT Family Medicine; ATTEND Allergy & Immunology
PROC: HZ2ZZZZ Detoxification Services for Substance Abuse Treatment (ICD-10-PCS; principal; 2024-11-20)
DX: F10.230 Alcohol dependence with withdrawal, uncomplicated (principal); F14.20 Cocaine dependence, uncomplicated; F17.210 Nicotine dependence, cigarettes, uncomplicated; F41.9 Anxiety disorder, unspecified; G47.00 Insomnia, unspecified; J45.909 Unspecified asthma, uncomplicated; L30.9 Dermatitis, unspecified; R76.8 Other specified abnormal immunological findings in serum; Z86.19 Personal history of other infectious and parasitic diseases
CPT/HCPCS: 36415; 80053; 85025; 86593; 86780; 93005; 93010

== ENCOUNTER 2025-02-13 17:21 | Inpatient (IN) | payer OTHER ==
[2025-02-13 17:40] VITALS: BMI 24.5
[2025-02-13] MEDS ORDERED: ACETAMINOPHEN 325 MG TABLET (FP) PO PRN (18:22)
[2025-02-13] MEDS ORDERED: ONDANSETRON *ODT* 4 MG TABLET SL PRN (18:22)
[2025-02-13] MEDS ORDERED: BISMUTH SUBSALICYLATE 524 MG/30 ML PO PRN (18:22)
[2025-02-13] MEDS ORDERED: MAG HYDROX/AL HYDROX/SIMETH 30 ML UNIT-DOSE CUP PO PRN (18:22)
[2025-02-13] MEDS ORDERED: METHOCARBAMOL 500 MG TABLET PO PRN (18:22)
[2025-02-13] MEDS ORDERED: MAGNESIUM HYDROX 2400MG/30ML ORAL SUSPENSION 30 ML CUP PO PRN (18:22)
[2025-02-13] MEDS ORDERED: BENZONATATE 200 MG CAPSULE PO PRN (18:22)
[2025-02-13] MEDS ORDERED: IBUPROFEN 600 MG TABLET (FP) PO PRN (18:22)
[2025-02-13] MEDS ORDERED: DICYCLOMINE HCL 10 MG CAPSULE PO PRN (18:22)
[2025-02-13] MEDS ORDERED: NICOTINE POLACRILEX 2 MG GUM BUC PRN (18:22)
[2025-02-13] MEDS ORDERED: NALOXONE (NARCAN) HCL 4 MG/0.1 ML SPRAY NS PRN (18:22)
[2025-02-13] MEDS ORDERED: IBUPROFEN 400 MG TABLET (FP) PO PRN (18:22)
[2025-02-13] MEDS ORDERED: hydrOXYzine PAMOATE 25 MG CAPSULE (FP) PO PRN (18:22)
[2025-02-13] MEDS ORDERED: LOPERAMIDE HCL 2 MG CAPSULE PO PRN (18:22)
[2025-02-13] MEDS ORDERED: NICOTINE POLACRILEX 2 MG LOZENGE BC PRN (18:22)
[2025-02-13] MEDS ORDERED: POLYETHYLENE GLYCOL (HEALTHYLAX) 3350 17 GM PACKET PO PRN (18:22)
[2025-02-13] MEDS ORDERED: ALBUTEROL SO4 HFA INHALER IH ONE (19:50)
[2025-02-13] MEDS: ALBUTEROL SO4 HFA INHALER IH PRN (19:53)
[2025-02-13] MEDS: guaiFENesin 600 MG TABLET.ER (FP) PO PRN (20:26)
[2025-02-13] MEDS: MELATONIN 5 MG TABLETS PO SCH (22:08)
[2025-02-13] MEDS: THIAMINE 100 MG TABLET PO SCH (22:09)
[2025-02-14] MEDS: BENZOCAINE/MENTHOL (CHLORASEPTIC ) LOZENGE MM PRN (05:32)
[2025-02-14 08:50] LABS: MCHC 32.4 g/dl (32.3-36.5); MEAN CELL VOLUME 98.7 fl (79.0-92.2); MEAN PLT VOLUME 10.3 fl (9.4-12.4); RDW 11.7 % (12.2-16.1)
[2025-02-14] MEDS: PRENATAL VITAMINS W/ FOLIC ACID TABLET (FP) PO SCH (10:08)
[2025-02-14 10:31] LABS: GLUCOSE,RANDOM 68 mg/dL (74-106); TOT PROT 6.1 g/dl (6.4-8.2)
[2025-02-14 10:33] LABS: CO2 24 mmol/L (21-32)
[2025-02-14 10:34] LABS: ALK PHOS 88 U/L (40-150)
[2025-02-14 10:37] LABS: CREATININE 0.77 mg/dL (0.55-1.3); SGOT/AST 24 U/L (5-34); SGPT/ALT 26 U/L (0-55)
[2025-02-14 11:06] LABS: SYPHILIS W/ RPR CONF REACTIVE (NONREACTIVE)
[2025-02-14 14:51] LABS: RPR REFLEX REACTIVE 1:1 (NONREACTIVE)
[2025-02-14 21:00] VITALS: TEMP 98.6
[2025-02-15 06:14] VITALS: BP 118/88; PULSE 70; RESP 17
== END 2025-02-15 08:54 | disposition home or self-care (01) | DRG 774 ==
LOC: YASAS 17:21 → Y6N 19:52
PROVIDERS: ADMIT Neuromusculoskeletal Medicine & OMM; ATTEND Counselor Addiction (Substance Use Disorder)
PROC: HZ2ZZZZ Detoxification Services for Substance Abuse Treatment (ICD-10-PCS; principal; 2025-02-13)
DX: F10.20 Alcohol dependence, uncomplicated (principal); F14.20 Cocaine dependence, uncomplicated; F17.210 Nicotine dependence, cigarettes, uncomplicated; Z59.02 Unsheltered homelessness
CPT/HCPCS: 36415; 80053; 80307; 85027; 86593; 86780